=== PATIENT | female | born 1945 | race Two or more races ===

== ENCOUNTER 2019-02-03 14:15 | Outpatient (CLI) | payer OTHER | END 2019-02-03 14:19 | disposition home or self-care (01) | LOC: NUCLEAR 14:15 | DX: M81.0 Age-related osteoporosis without current pathological fracture (principal); M15.0 Primary generalized (osteo)arthritis ==

== ENCOUNTER → 2019-02-03 | Outpatient (CLI) | payer OTHER | END | disposition home or self-care (01) | LOC: MAMO-SONO 13:15 | DX: Z12.31 Encounter for screening mammogram for malignant neoplasm of breast (principal); Z87.898 Personal history of other specified conditions; C50.911 Malignant neoplasm of unspecified site of right female breast; N63.10 Unspecified lump in the right breast, unspecified quadrant; N63.20 Unspecified lump in the left breast, unspecified quadrant ==

== ENCOUNTER 2020-12-26 11:04 | Outpatient (CLI) | payer OTHER ==
[~2020-12-26 11:04] MED LIST: ALENDRONATE SOD70 MG PO; COZAAR100 MG PO; ESTAZOLAM2 MG PO; FORTAMET500 MG PO; GLIMEPIRIDE1 M1 PO; HORIZANT300 MG PO; HYDRODIURIL12.5 MG PO; PENTOXIFYLLINE400 MG PO; SIMVASTATIN5 MG PO; TOPROL XL100 M1 PO
== END 2020-12-26 11:14 | disposition home or self-care (01) ==
LOC: RAD 11:04
PROVIDERS: ATTEND Internal Medicine Geriatric Medicine
DX: M16.0 Bilateral primary osteoarthritis of hip (principal); M17.0 Bilateral primary osteoarthritis of knee

== ENCOUNTER → 2021-03-04 | Emergency (ER) | payer OTHER ==
[~2021-03-04] VITALS: Ht 160 cm; Wt 68.0 kg
[~2021-03-04] MED LIST changes: +ADULT LOW DOSE81 M1; +AMLODIPINE-OLM1 EAC2; +CLEOCIN HCL300 MG PO; +GLIMEPIRIDE1 MG; +KETO10TA2 PO; +SIMVASTATIN5 MG
== END | disposition home or self-care (01) ==
LOC: ER 09:11
DX: K08.89 Other specified disorders of teeth and supporting structures (principal)

== ENCOUNTER → 2021-09-14 | Outpatient (CLI) | payer OTHER | END | disposition home or self-care (01) | LOC: NUCLEAR 09:00 | PROVIDERS: ATTEND Internal Medicine Geriatric Medicine | DX: I87.2 Venous insufficiency (chronic) (peripheral) (principal); I73.9 Peripheral vascular disease, unspecified ==

== ENCOUNTER 2022-01-31 11:11 | Outpatient (CLI) | payer OTHER | END 2022-01-31 11:24 | disposition home or self-care (01) | LOC: LAB 11:11 | PROVIDERS: ATTEND Internal Medicine Geriatric Medicine | DX: N39.0 Urinary tract infection, site not specified (principal) ==

== ENCOUNTER 2022-03-12 07:32 | Outpatient (CLI) | payer OTHER | END 2022-03-12 09:29 | disposition home or self-care (01) | LOC: NUCLEAR 07:32 | PROVIDERS: ATTEND Internal Medicine Cardiovascular Disease | DX: I87.2 Venous insufficiency (chronic) (peripheral) (principal); Z91.013 Allergy to seafood ==

== ENCOUNTER 2023-10-23 12:08 | Outpatient (CLI) | payer OTHER | END 2023-10-23 12:19 | disposition home or self-care (01) | LOC: MAMO-SONO 12:08 | PROVIDERS: ATTEND Internal Medicine Geriatric Medicine | DX: Z12.31 Encounter for screening mammogram for malignant neoplasm of breast (principal); C50.919 Malignant neoplasm of unspecified site of unspecified female breast; N63.0 Unspecified lump in unspecified breast; N64.4 Mastodynia; N60.12 Diffuse cystic mastopathy of left breast; N60.11 Diffuse cystic mastopathy of right breast ==

== ENCOUNTER 2023-10-31 12:59 | Outpatient (CLI) | payer OTHER | END 2023-10-31 13:00 | disposition home or self-care (01) | LOC: NUCLEAR 12:59 | PROVIDERS: ATTEND Internal Medicine Geriatric Medicine | DX: M15.0 Primary generalized (osteo)arthritis (principal); M81.0 Age-related osteoporosis without current pathological fracture ==

== ENCOUNTER 2024-12-30 13:06 | Outpatient (CLI) | payer OTHER | END 2024-12-30 13:11 | disposition home or self-care (01) | LOC: MAMO-SONO 13:06 | PROVIDERS: ATTEND Internal Medicine Geriatric Medicine | DX: N64.4 Mastodynia (principal); N63.0 Unspecified lump in unspecified breast; N60.12 Diffuse cystic mastopathy of left breast; N60.11 Diffuse cystic mastopathy of right breast; C50.919 Malignant neoplasm of unspecified site of unspecified female breast; Z12.31 Encounter for screening mammogram for malignant neoplasm of breast ==